=== PATIENT | female | born 1945 | race Caucasian/White ===

== ENCOUNTER 2018-08-17 13:23 | Inpatient (IN) | payer MEDICARE, OTHER ==
[2018-08-17] MEDS: SOD CHLORIDE 0.9% 500 ML IV (14:03)
[2018-08-17 14:04] LABS: ADD MAN DIFF? NO
[2018-08-17 14:05] LABS: BASOPHILS % 0.5 % (0.0-2.0); EOSINOPHILS # 0.2 10^3/ul (0.0-0.5); EOSINOPHILS % 2.5 % (0.0-7.0); HEMATOCRIT 38.8 % (37.0-47.0); HEMOGLOBIN 12.8 g/dl (12.0-16.0); LYMPHOCYTES # 1.8 10^3/ul (0.8-2.9); LYMPHOCYTES % 30.1 % (15.0-51.0); MEAN CORPUSCULAR HEMOGLOBIN 29.4 pg (29.0-33.0); MEAN PLATELET VOLUME 9.3 fl (7.4-10.4); MONOCYTE # 0.4 10^3/ul (0.3-0.9); MONOCYTES % 6.8 % (0.0-11.0); NEUTROPHIL # 3.6 10^3/ul (1.6-7.5); NEUTROPHILS % 59.6 % (39.0-77.0); PLATELET COUNT 222 10^3/UL (140-415); RED BLOOD COUNT 4.36 10^6/ul (4.20-5.40); RED CELL DISTRIBUTION WIDTH 12.8 % (11.5-14.5)
[2018-08-17 14:23] LABS: ANION GAP 9 (5-13); BLOOD UREA NITROGEN 13 mg/dl (7-20); CALCIUM 9.9 mg/dl (8.4-10.2); CARBON DIOXIDE 31 mmol/L (21-31); CHLORIDE 101 mmol/L (97-110); CREATININE 0.75 mg/dl (0.44-1.00); GLUCOSE 238 mg/dl (70-220); POTASSIUM 4.4 mmol/L (3.5-5.1); SODIUM 141 mmol/L (135-144)
[2018-08-17 14:33] LABS: INR 0.91; PROTIME 12.3 Sec (11.9-14.9)
[2018-08-17 14:34] LABS: PARTIAL THROMBOPLASTIN TIME 30.6 Sec (23.0-35.0); TROPONIN-I < 0.012 ng/ml (0.000-0.120)
[2018-08-17] MEDS ORDERED: ONDANSETRON 4 MG INJ IV ×2 (16:00→16:30)
[2018-08-17] MEDS ORDERED: ACETAMINOPHEN 325 MG TAB PO (16:00)
[2018-08-17] MEDS ORDERED: NACL 0.9% 3 ML SYG IV (16:30)
[2018-08-17 16:56] LABS: HEMOGLOBIN A1C 8.4 % (0-5.9)
[2018-08-17] MEDS: HYDROCODONE/APAP (5/325) TAB PO ×2 (16:59→22:18)
[2018-08-17] MEDS ORDERED: GLUCOSE GEL 15 GRAM TUBE BUCCAL (18:00)
[2018-08-17] MEDS ORDERED: GLUCAGON 1 MG INJ IM (18:00)
[2018-08-17] MEDS ORDERED: GLUCOSE GEL 15 GRAM TUBE PO ×2 (18:00)
[2018-08-17] MEDS ORDERED: DEXTROSE 50% 50 ML SYRINGE IV ×2 (18:00)
[2018-08-17] MEDS: ACETAMINOPHEN 325 MG TAB PO (18:40)
[2018-08-17] MEDS ORDERED: hydrALAzine 20 MG INJ IV (19:00)
[2018-08-17] MEDS: ALBUTEROL HFA 8 GM INHALER INH ×2 (20:00→20:48)
[2018-08-17] MEDS: FUROSEMIDE 20 MG TAB PO (20:48)
[2018-08-17] MEDS: INSULIN ASPART [NOVOLOG] 3 ML PEN SC ×2 (21:00→23:30)
[2018-08-17 21:17] LABS: TROPONIN-I < 0.012 ng/ml (0.000-0.120)
[2018-08-17] MEDS: clonAZEPAM 0.5 MG TAB PO (21:20)
[2018-08-17] MEDS: AMIODARONE 200 MG TAB PO (21:21)
[2018-08-17] MEDS: ATORVASTATIN 20 MG TAB PO (21:21)
[2018-08-17] MEDS: traZODone 100 MG TAB PO (21:21)
[2018-08-17] MEDS: METOPROLOL 25 MG TAB PO (21:22)
[2018-08-17] MEDS: APIXABAN 5 MG TABLET PO (21:22)
[2018-08-17] MEDS: ROPINIROLE 1 MG TAB PO (22:18)
[2018-08-18 01:41] LABS: TROPONIN-I < 0.012 ng/ml (0.000-0.120)
[2018-08-18] MEDS: ALBUTEROL HFA 8 GM INHALER INH ×4 (02:00→20:00)
[2018-08-18] MEDS: HYDROCODONE/APAP (5/325) TAB PO (04:17)
[2018-08-18] MEDS: HYDROmorphONE 0.5 MG/0.5 ML SYG IV ×2 (05:29→09:49)
[2018-08-18] MEDS: FUROSEMIDE 20 MG TAB PO ×2 (05:32→18:00)
[2018-08-18] MEDS: PANTOPRAZOLE (EC) 40 MG TAB PO (05:35)
[2018-08-18 06:13] LABS: ADD MAN DIFF? NO
[2018-08-18 06:17] LABS: WHITE BLOOD COUNT 5.9 10^3/ul (4.8-10.8)
[2018-08-18 06:17] LABS: BASOPHILS % 0.5 % (0.0-2.0); EOSINOPHILS # 0.1 10^3/ul (0.0-0.5); EOSINOPHILS % 2.4 % (0.0-7.0); HEMATOCRIT 35.3 % (37.0-47.0); HEMOGLOBIN 11.9 g/dl (12.0-16.0); LYMPHOCYTES # 1.5 10^3/ul (0.8-2.9); LYMPHOCYTES % 25.9 % (15.0-51.0); MEAN CORPUSCULAR HEMOGLOBIN 29.6 pg (29.0-33.0); MEAN CORPUSCULAR HGB CONC 33.7 g/dl (32.0-37.0); MEAN CORPUSCULAR VOLUME 87.8 fl (82.0-101.0); MONOCYTE # 0.4 10^3/ul (0.3-0.9); MONOCYTES % 7.3 % (0.0-11.0); NEUTROPHIL # 3.7 10^3/ul (1.6-7.5); NEUTROPHILS % 63.4 % (39.0-77.0); PLATELET COUNT 198 10^3/UL (140-415); RED BLOOD COUNT 4.02 10^6/ul (4.20-5.40)
[2018-08-18 06:39] LABS: TROPONIN-I < 0.012 ng/ml (0.000-0.120)
[2018-08-18 07:09] LABS: ANION GAP 7 (5-13); BLOOD UREA NITROGEN 13 mg/dl (7-20); CALCIUM 9.9 mg/dl (8.4-10.2); CARBON DIOXIDE 29 mmol/L (21-31); CHLORIDE 103 mmol/L (97-110); GLUCOSE 202 mg/dl (70-220); MAGNESIUM 1.3 mg/dl (1.7-2.5); POTASSIUM 4.1 mmol/L (3.5-5.1); SODIUM 139 mmol/L (135-144)
[2018-08-18] MEDS: AMIODARONE 200 MG TAB PO ×2 (08:21→21:02)
[2018-08-18] MEDS: APIXABAN 5 MG TABLET PO ×2 (08:22→21:02)
[2018-08-18] MEDS: CITALOPRAM 20 MG TAB PO (08:22)
[2018-08-18] MEDS: METOPROLOL 25 MG TAB PO ×2 (08:22→21:03)
[2018-08-18] MEDS: ASPIRIN (EC) 325 MG TAB PO (08:22)
[2018-08-18] MEDS: ASA/ACETAMINOPHEN/CAFF TAB PO (08:29)
[2018-08-18] MEDS: INSULIN ASPART [NOVOLOG] 3 ML PEN SC ×4 (08:30→21:14)
[2018-08-18] MEDS: SUMATRIPTAN 6 MG/0.5 ML INJ SC (14:08)
[2018-08-18 14:43] LABS: HEMOGLOBIN A1C 8.5 % (0-5.9)
[2018-08-18] MEDS: MAGNESIUM SULFATE 3 GM in DEXTROSE 5% 100 ML IVPB (15:44)
[2018-08-18] MEDS: ACET/BUTAL/CAFF TAB PO (16:05)
[2018-08-18] MEDS: traZODone 100 MG TAB PO (21:02)
[2018-08-18] MEDS: clonAZEPAM 0.5 MG TAB PO (21:02)
[2018-08-18] MEDS: ATORVASTATIN 20 MG TAB PO (21:03)
[2018-08-18] MEDS: ROPINIROLE 1 MG TAB PO (21:03)
[2018-08-19] MEDS: ALBUTEROL HFA 8 GM INHALER INH ×3 (02:00→14:00)
[2018-08-19] MEDS: INSULIN ASPART [NOVOLOG] 3 ML PEN SC ×5 (02:26→22:07)
[2018-08-19] MEDS: FUROSEMIDE 20 MG TAB PO (05:18)
[2018-08-19] MEDS: PANTOPRAZOLE (EC) 40 MG TAB PO (05:32)
[2018-08-19 06:38] LABS: ADD MAN DIFF? NO
[2018-08-19 06:40] LABS: BASOPHILS % 0.4 % (0.0-2.0); EOSINOPHILS # 0.1 10^3/ul (0.0-0.5); EOSINOPHILS % 1.8 % (0.0-7.0); HEMATOCRIT 39.2 % (37.0-47.0); HEMOGLOBIN 12.9 g/dl (12.0-16.0); LYMPHOCYTES % 17.9 % (15.0-51.0); MEAN CORPUSCULAR HEMOGLOBIN 29.6 pg (29.0-33.0); MEAN CORPUSCULAR HGB CONC 32.9 g/dl (32.0-37.0); MEAN CORPUSCULAR VOLUME 89.9 fl (82.0-101.0); MEAN PLATELET VOLUME 9.3 fl (7.4-10.4); MONOCYTE # 0.5 10^3/ul (0.3-0.9); MONOCYTES % 8.8 % (0.0-11.0); NEUTROPHIL # 3.9 10^3/ul (1.6-7.5); NEUTROPHILS % 70.6 % (39.0-77.0); PLATELET COUNT 218 10^3/UL (140-415); RED BLOOD COUNT 4.36 10^6/ul (4.20-5.40); RED CELL DISTRIBUTION WIDTH 12.9 % (11.5-14.5)
[2018-08-19 06:40] LABS: WHITE BLOOD COUNT 5.5 10^3/ul (4.8-10.8)
[2018-08-19 07:05] LABS: ANION GAP 10 (5-13); BLOOD UREA NITROGEN 14 mg/dl (7-20); CALCIUM 10.1 mg/dl (8.4-10.2); CARBON DIOXIDE 31 mmol/L (21-31); CHLORIDE 97 mmol/L (97-110); CREATININE 0.81 mg/dl (0.44-1.00); GLUCOSE 232 mg/dl (70-220); POTASSIUM 4.6 mmol/L (3.5-5.1); SODIUM 138 mmol/L (135-144)
[2018-08-19 07:25] LABS: PHOSPHORUS 4.4 mg/dl (2.5-4.9)
[2018-08-19 07:25] LABS: MAGNESIUM 1.7 mg/dl (1.7-2.5)
[2018-08-19] MEDS: CITALOPRAM 20 MG TAB PO (08:08)
[2018-08-19] MEDS: BENAZEPRIL 10 MG TAB PO (08:08)
[2018-08-19] MEDS: APIXABAN 5 MG TABLET PO ×2 (08:08→21:59)
[2018-08-19] MEDS: AMIODARONE 200 MG TAB PO ×2 (08:08→22:10)
[2018-08-19] MEDS: ASPIRIN (EC) 325 MG TAB PO (08:09)
[2018-08-19] MEDS: METOPROLOL 25 MG TAB PO ×2 (08:09→22:10)
[2018-08-19] MEDS: MAGNESIUM HYDROXIDE 30ML CUP PO (12:00)
[2018-08-19] MEDS: DOCUSATE SODIUM 100 MG CAP PO (12:00)
[2018-08-19] MEDS ORDERED: ALBUTEROL HFA 8 GM INHALER INH (16:30)
[2018-08-19] MEDS: ACET/BUTAL/CAFF TAB PO (21:59)
[2018-08-19] MEDS: ATORVASTATIN 20 MG TAB PO (21:59)
[2018-08-19] MEDS: ROPINIROLE 1 MG TAB PO (21:59)
[2018-08-20 06:01] LABS: ADD MAN DIFF? NO
[2018-08-20 06:02] LABS: WHITE BLOOD COUNT 7.1 10^3/ul (4.8-10.8)
[2018-08-20 06:02] LABS: BASOPHILS % 0.4 % (0.0-2.0); EOSINOPHILS # 0.1 10^3/ul (0.0-0.5); HEMATOCRIT 35.2 % (37.0-47.0); HEMOGLOBIN 11.9 g/dl (12.0-16.0); LYMPHOCYTES % 13.9 % (15.0-51.0); MEAN CORPUSCULAR HEMOGLOBIN 29.9 pg (29.0-33.0); MEAN CORPUSCULAR HGB CONC 33.8 g/dl (32.0-37.0); MEAN CORPUSCULAR VOLUME 88.4 fl (82.0-101.0); MEAN PLATELET VOLUME 9.1 fl (7.4-10.4); MONOCYTE # 0.9 10^3/ul (0.3-0.9); MONOCYTES % 12.2 % (0.0-11.0); NEUTROPHIL # 5.1 10^3/ul (1.6-7.5); NEUTROPHILS % 71.9 % (39.0-77.0); PLATELET COUNT 177 10^3/UL (140-415); RED BLOOD COUNT 3.98 10^6/ul (4.20-5.40); RED CELL DISTRIBUTION WIDTH 13.2 % (11.5-14.5)
[2018-08-20 06:25] LABS: ALANINE AMINOTRANSFERASE 23 IU/L (13-69); ALBUMIN 3.9 g/dl (3.3-4.9); ALBUMIN/GLOBULIN RATIO 1.56; ALKALINE PHOSPHATASE 96 IU/L (42-121); ANION GAP 7 (5-13); ASPARTATE AMINO TRANSFERASE 14 IU/L (15-46); BILIRUBIN,INDIRECT 0.2 mg/dl (0-1.1); BILIRUBIN,TOTAL 0.2 mg/dl (0.2-1.3); BLOOD UREA NITROGEN 15 mg/dl (7-20); CALCIUM 9.7 mg/dl (8.4-10.2); CARBON DIOXIDE 35 mmol/L (21-31); CHLORIDE 97 mmol/L (97-110); CREATININE 0.91 mg/dl (0.44-1.00); GLUCOSE 244 mg/dl (70-220); MAGNESIUM 1.7 mg/dl (1.7-2.5); SODIUM 139 mmol/L (135-144); TOTAL PROTEIN 6.4 g/dl (6.1-8.1)
[2018-08-20] MEDS: INSULIN ASPART [NOVOLOG] 3 ML PEN SC ×4 (08:43→20:16)
[2018-08-20] MEDS: ASPIRIN (EC) 325 MG TAB PO (09:02)
[2018-08-20] MEDS: APIXABAN 5 MG TABLET PO ×2 (09:03→20:07)
[2018-08-20] MEDS: CITALOPRAM 20 MG TAB PO (09:03)
[2018-08-20] MEDS: HYDROCODONE/APAP (5/325) TAB PO (09:03)
[2018-08-20] MEDS: METOPROLOL 25 MG TAB PO ×2 (09:04→20:08)
[2018-08-20] MEDS: BENAZEPRIL 10 MG TAB PO ×2 (09:04→20:08)
[2018-08-20] MEDS: AMIODARONE 200 MG TAB PO ×2 (09:05→20:07)
[2018-08-20] MEDS: ACET/BUTAL/CAFF TAB PO (10:32)
[2018-08-20] MEDS: ROPINIROLE 1 MG TAB PO (20:07)
[2018-08-20] MEDS: ATORVASTATIN 20 MG TAB PO (20:07)
== END 2018-08-20 21:20 | disposition home or self-care (01) | DRG 312 ==
LOC: E/R 13:23 → TEL 15:32
PROVIDERS: Internal Medicine
DX: R55 Syncope and collapse (principal); C85.90 Non-Hodgkin lymphoma, unspecified, unspecified site; I48.91 Unspecified atrial fibrillation; Z95.0 Presence of cardiac pacemaker; E78.5 Hyperlipidemia, unspecified; I10 Essential (primary) hypertension; Z85.3 Personal history of malignant neoplasm of breast; E83.42 Hypomagnesemia; Z79.82 Long term (current) use of aspirin; R32 Unspecified urinary incontinence; E66.9 Obesity, unspecified; Z68.36 Body mass index [BMI] 36.0-36.9, adult; T50.905A Adverse effect of unspecified drugs, medicaments and biological substances, initial encounter; M17.12 Unilateral primary osteoarthritis, left knee; Z79.4 Long term (current) use of insulin
CPT/HCPCS: 36415; 70450; 71045; 80048; 80053; 82607; 82962; 83036; 83735; 84100; 84443; 84484; 85025; 85610; 85730; 93005; 93306; 93880; 97110; 97116; 97161; 97165; 97530; 99217; 99285-25; G0378